=== PATIENT | male | born 1990 | race Native Hawaiian/Other Pacific Islander ===

== ENCOUNTER 2017-01-23 21:00 | Emergency (ER) | payer OTHER ==
[~2017-01-23] VITALS: Ht 175.3 cm; Wt 96.1 kg
[~2017-01-23 21:00] MED LIST: LORT5TAB PO; Z.0.NO CURRENT MEDS
[2017-01-23 21:07] VITALS: BP 162/83; PULSE 85; RESP 18; TEMP 98.7; O2SAT 100
[2017-01-23 22:45] VITALS: BP 138/86; PULSE 78; RESP 16; O2SAT 96
[2017-01-23] MEDS ORDERED: ARIP1INJ2 IM (22:49)
--- NOTE | 2017-01-23 22:49 | PD ---
HPI Chief Complaint: Headache Time Seen by Provider: 22:39 Travel History International Travel<30 days: No Contact w/Intl Traveler<30days: No Traveled to known affect area: No History of Present Illness HPI This patient complains of palpitations. He says he checked his pulse and it felt racing. No presyncopal symptoms. He has history of anxiety problems. No pain or syncope. Symptoms severity is mild. Duration 1 hour. No alleviating factors or exacerbating factors PFSH Past Medical History Blood Disorders: No Cancer: No Cardiovascular Problems: Yes (HTN) Chemotherapy: No Endocrine: No Genitourinary: No Immune Disorder: No Musculoskeletal: No Neurologic: No Psychiatric: No Reproductive: No Respiratory: No Radiation Therapy: No Social History Alcohol Use: Yes (DENIES USE + ETOH ON TOX SCREEN) Tobacco Use: No Substance Use: Yes (DENIES USE +THC ON TOX SCREEN) Allergies-Medications (Allergen,Severity, Reaction): Coded Allergies: No Known Allergies (Verified Adverse Reaction, Unknown, 01/23/17) Reported Meds & Prescriptions Reported Meds & Active Scripts Active Reported Aristada ER Inj (Aripiprazole Lauroxil ER Inj) 441 Mg/1.6 Ml Susp 441 Mg IM Q28D Review of Systems General / Constitutional: No: Fever Eyes: No: Visual changes HENT: No: Headaches Cardiovascular: Positive: Palpitations, No: Chest Pain or Discomfort Respiratory: No: Shortness of Breath Gastrointestinal: No: Abdominal Pain Genitourinary: No: Dysuria Musculoskeletal: No: Pain Skin: No Rash Neurologic: No: Weakness Psychiatric: Positive: Anxiety, No: Depression Endocrine: No: Polydipsia Hematologic/Lymphatic: No: Easy Bruising Physical Exam Narrative GENERAL: Well-nourished, well-developed patient in no apparent distress. SKIN: Focused skin assessment reveals no rash and nodules. Skin is Warm and dry. Cover with tattoos HEAD: Atraumatic. Normocephalic. EYES: Pupils equal and round. No scleral icterus. No injection or drainage. ENT: No nasal bleeding or discharge. Mucous membranes pink and moist. NECK: Trachea midline. No JVD. CARDIOVASCULAR: Regular rate and rhythm. No murmur appreciated. RESPIRATORY: No accessory muscle use. Clear to auscultation. Breath sounds equal bilaterally. GASTROINTESTINAL: Abdomen soft, non-tender, nondistended. Hepatic and splenic margins not palpable. MUSCULOSKELETAL: No obvious deformities. No clubbing. No cyanosis. No edema. NEUROLOGICAL: Awake and alert. No obvious cranial nerve deficits. Motor grossly within normal limits. Normal speech. PSYCHIATRIC: Appropriate mood and affect; insight and judgment normal. Data Data Last Documented VS Vital Signs Date Time Temp Pulse Resp B/P (MAP) Pulse Ox O2 Delivery O2 Flow Rate FiO2 01/23/17 22:35 78 16 95 Room Air 01/23/17 21:07 98.7 162/83 (109) Orders Orders Ed Discharge Order (01/23/17 23:23) MDM Medical Decision Making Medical Screen Exam Complete: Yes Emergency Medical Condition: Yes Medical Record Reviewed: Yes Differential Diagnosis Cardiac arrhythmia, anxiety, palpitations Narrative Course I have reviewed the patient's electronic medical record. Patient's exam is normal Extended cardiac monitoring reveals sinus rhythm without ectopy or tachycardia Currently sinus rhythm at 80 I'm going to observe him for while On recheck he remains in sinus rhythm without symptoms. Vitals are normal.The patient was advised to follow up with their physician and return if they worsen. Diagnosis Primary Impression: Heart palpitations Additional Instructions: The patient was advised to follow up with their physician and return if they worsen. Med/Other Pt SpecificInfo: Other Disposition: 01 DISCHARGE HOME Condition: Stable Itz Noonan MD Jan 23, 2017 22:49
[2017-01-23 23:15] VITALS: BP 135/81; PULSE 77; RESP 16; O2SAT 98
== END 2017-01-23 23:40 | disposition home or self-care (01) ==
LOC: PHED 21:00
DX: R00.2 Palpitations (principal); I10 Essential (primary) hypertension
CPT/HCPCS: 99283